=== PATIENT | female | born 1960 | race African-American/Black ===

== ENCOUNTER 2018-12-31 11:38 | Emergency (ER) | payer OTHER ==
[~2018-12-31] VITALS: Ht 154.9 cm; Wt 69.0 kg
[2018-12-31 11:47] VITALS: BP 158/93
== END 2018-12-31 15:10 | disposition left against medical advice (07) ==
LOC: ER 11:38
DX: I10 Essential (primary) hypertension (principal); Z53.21 Procedure and treatment not carried out due to patient leaving prior to being seen by health care provider
CPT/HCPCS: 93005